=== PATIENT | male | born 1945 | race Caucasian/White ===

== ENCOUNTER 2022-07-24 13:39 | Outpatient (REF) | payer MEDICARE, SELFPAY ==
--- NOTE | 2022-07-24 11:00 | SKI_PTH ---
PATIENT: Kalia Slade LOC: [facility] U#:[id number] AGE/SX: 77/M ROOM: RE07/24/[address]: Saeed Weldon : 1945 BED: DIS: 07/24/2022 SPEC #: [id number] RECD: 07/25/22 11:06 STATUS: MAITE POOLE #: [id number] DAYLIN: 07/24/22 11:[address]: Saeed Weldon DEPT: Surgical Specimen RECD BY: Radha Gordon Tissues: 1 - SKIN BIOPSY(SHAVE/PUNCH) 2 - SKIN BIOPSY(SHAVE/PUNCH) Procedures: SKIN LEVEL 4 Comments: [id number]
== END 2022-07-24 13:40 | disposition home or self-care (01) ==
LOC: LBN 13:39
PROVIDERS: PCP Family Medicine; Visit Provider Family Medicine
DX: C44.519 Basal cell carcinoma of skin of other part of trunk (principal); L57.0 Actinic keratosis
CPT/HCPCS: 88305

== ENCOUNTER 2022-08-22 14:57 | Outpatient (REF) | payer MEDICARE, SELFPAY ==
--- NOTE | 2022-08-22 11:40 | SKI_PTH ---
PATIENT: Kalia Slade LOC: [facility]#:[id number] AGE/SX: 77/M ROOM: RE08/22/[address]: Saeed Weldon : 1945 BED: DIS: 08/22/2022 SPEC #: [id number] RECD: 08/22/22 18:03 STATUS: MAITE REAlondra #: [id number] DAYLIN: 08/22/22 11:[address]: Saeed Weldon DEPT: Surgical Specimen RECD BY: Radha Gordon Tissues: 1 - SKIN BIOPSY(SHAVE/PUNCH) Procedures: SKIN LEVEL 4 Comments: [id number]
== END 2022-08-22 14:58 | disposition home or self-care (01) ==
LOC: NCHCN 14:57
PROVIDERS: PCP Family Medicine; Visit Provider Family Medicine
DX: C44.519 Basal cell carcinoma of skin of other part of trunk (principal)
CPT/HCPCS: 88305

== ENCOUNTER 2023-07-05 19:48 | Outpatient (REF) | payer MEDICARE, SELFPAY ==
[2023-07-05 16:14] LABS: Anion Gap 9.7 mmol/L (3-11); BUN 17 mg/dL (7-18); CO2 26.3 mmol/L (21.0-32.0); CREATININE 0.9 mg/dL (0.70-1.30); Calcium 9.5 mg/dL (8.5-10.1); Chloride 107 mmol/L (98-107); Estimated GFR 86.34 (mL/min/1.73m2); Glucose 98 mg/dL (74-106); Potassium 4.1 mmol/L (3.5-5.1); Sodium 143 mmol/L (136-145)
== END 2023-07-05 19:49 | disposition home or self-care (01) ==
LOC: NCHCN 19:48
PROVIDERS: PCP Family Medicine; Visit Provider Family Medicine
DX: N40.1 Benign prostatic hyperplasia with lower urinary tract symptoms (principal)
CPT/HCPCS: 80048

== ENCOUNTER 2024-11-03 16:10 | Outpatient (REF) | payer MEDICARE, SELFPAY ==
[2024-11-03 22:40] LABS: HCT 45.7 % (40.0-50.0); HGB 14.9 g/dL (13.5-17.5); MCH 29.6 pg (27.0-33.0); MCHC 32.6 % (32.0-36.0); MCV 91 fL (80-95); MPV 10.1 fL (8.0-11.0); Platelet Count 245 10^3/uL (130-400); RBC 5.03 10^6/uL (4.36-5.78); RDW 12.2 % (11.8-14.1); RDW-SD 40.0 fL; WBC 5.27 10^3/uL (4.4-10.8)
[2024-11-03 22:44] LABS: Anion Gap 9.5 mmol/L (3-11); BUN 17 mg/dL (7-18); CO2 25.5 mmol/L (21.0-32.0); Calcium 8.8 mg/dL (8.5-10.1); Chloride 107 mmol/L (98-107); Estimated GFR 88.91 (mL/min/1.73m2); Glucose 119 mg/dL (74-106); Potassium 4.4 mmol/L (3.5-5.1); Sodium 142 mmol/L (136-145)
== END 2024-11-03 16:11 | disposition home or self-care (01) ==
LOC: NCHCN 16:10
PROVIDERS: PCP Family Medicine; Visit Provider Family Medicine
DX: N40.1 Benign prostatic hyperplasia with lower urinary tract symptoms (principal)
CPT/HCPCS: 80048; 85027